=== PATIENT | male | born 1980 | race Caucasian/White ===

== ENCOUNTER 2016-08-16 01:43 | Emergency (ER) | payer SELFPAY ==
[2016-08-16] MEDS ORDERED: HYDROcodone/Acetaminophen 10/325 mg Tablet ONE (02:08)
[2016-08-16] MEDS ORDERED: Naproxen 500 MG TAB ONE (02:08)
--- NOTE | 2016-08-16 07:43 | RAD ---
RIGHT TIBIA AND FIBULA 4 VIEWS: Date: 08/16/16 HISTORY: Fell 2 days ago with injury to right lower extremity. FINDINGS: No evidence of fracture identified. IMPRESSION: No acute osseous abnormality. POS: [facility]
--- NOTE | 2016-08-16 07:43 | RAD ---
RIGHT ANKLE 3 VIEWS: Date: 08/16/16 HISTORY: Fell 2 days ago with injury to ankle. FINDINGS: Mild soft tissue swelling. No evidence of fracture. IMPRESSION: No acute osseous abnormality. POS: [facility]
--- NOTE | 2016-08-16 07:50 | RAD ---
RIGHT FOOT: Three views obtained. HISTORY: Fell 2 days with injury to foot. FINDINGS: Tarsals appear intact. Metatarsals and phalanges appear intact. IMPRESSION: No acute abnormality. POS: [facility]
== END 2016-08-16 02:52 | disposition home or self-care (01) ==
LOC: MADERS 01:43
DX: S93.401A Sprain of unspecified ligament of right ankle, initial encounter (principal); S90.31XA Contusion of right foot, initial encounter; F41.9 Anxiety disorder, unspecified; F17.210 Nicotine dependence, cigarettes, uncomplicated; W19.XXXA Unspecified fall, initial encounter

== ENCOUNTER 2016-09-20 01:32 | Emergency (ER) | payer SELFPAY ==
[2016-09-20] MEDS ORDERED: HYDROcodone/Acetaminophen 10/325 mg Tablet ONE (03:33)
[2016-09-20] MEDS ORDERED: Naproxen 500 MG TAB ONE (03:33)
[2016-09-20 03:48] LABS: #Basophils 0.1 thou/uL (0.0-0.2); #Eosinphils 0.5 thou/uL (0.0-0.7); #Lymphocytes 3.7 thou/uL (1.20-3.40); #Monocytes 0.9 thou/uL (0.11-0.59); #Neutrophils 4.9 thou/uL (1.40-6.50); %Basophils 1.2 % (0.0-1.0); %Eosinophils 5.1 % (0.0-10.0); %Lymphocytes 36.4 % (21.0-51.0); %Monocytes 9.3 % (0.0-10.0); %Neutrophils 48.1 % (42.0-75.0); Hemoglobin 16.8 g/dL (14.0-18.0); Mean Corpuscular HGB CONC 34.1 g/dL (32.0-36.0); Mean Corpuscular Volume 93.9 fl (80.0-94.0); Mean Platelet Volume 8.7 fL (7.4-10.4); Platelet Count 196 thou/uL (130-400); Red Blood Cell (RBC) Count 5.26 mill/uL (4.70-6.10); White Blood Cell (WBC) Count 10.1 thou/uL (4.8-10.8)
[2016-09-20 04:08] LABS: ALT (SGPT) 19 U/L (0-55); AST (SGOT) 19 U/L (5-34); Albumin 4.4 g/dL (3.5-5.0); Alkaline Phosphatase 96 U/L (40-150); Anion Gap 15 mmol/L (10-20); BUN (Urea Nitrogen) 17 mg/dL (8.9-20.6); Bilirubin, Total 0.4 mg/dL (0.2-1.2); Calc. Creatinine Clearance 0 mL/min (70-130); Calcium 9.1 mg/dL (7.8-10.44); Carbon Dioxide 24 mmol/L (22-29); Chloride 105 mmol/L (98-107); Estimated GFR-MDRD Greater than 90; Globulin 2.6 g/dL (2.4-3.5); Glucose 96 mg/dL (70-105); Potassium 4.1 mmol/L (3.5-5.1); Sodium 140 mmol/L (136-145)
== END 2016-09-20 05:02 | disposition home or self-care (01) ==
LOC: MADERS 01:32
DX: M79.661 Pain in right lower leg (principal); M79.671 Pain in right foot; F41.9 Anxiety disorder, unspecified; F17.210 Nicotine dependence, cigarettes, uncomplicated; Z79.899 Other long term (current) drug therapy; V89.2XXA Person injured in unspecified motor-vehicle accident, traffic, initial encounter
CPT/HCPCS: 36415; 80053; 85025; 85379; 99283

== ENCOUNTER 2016-10-08 13:38 | Emergency (ER) | payer SELFPAY ==
[2016-10-08] MEDS ORDERED: Ondansetron HCl/PF 4 MG/2 ML Vial ONE ×2 (13:46→14:18)
[2016-10-08] MEDS ORDERED: Ketorolac Tromethamine 30 MG/ML VIAL ONE (13:46)
[2016-10-08 14:16] LABS: #Basophils 0.1 thou/uL (0.0-0.2); #Eosinphils 0.2 thou/uL (0.0-0.7); #Neutrophils 9.8 thou/uL (1.40-6.50); %Basophils 0.8 % (0.0-1.0); %Eosinophils 1.2 % (0.0-10.0); %Lymphocytes 15.3 % (21.0-51.0); %Monocytes 7.6 % (0.0-10.0); Mean Corpuscular Hemoglobin 31.6 pg (27.0-31.0); Mean Corpuscular Volume 92.9 fl (80.0-94.0); Mean Platelet Volume 8.3 fL (7.4-10.4); Platelet Count 247 thou/uL (130-400); RBC Distribution Width 10.8 % (11.5-14.5); Red Blood Cell (RBC) Count 5.38 mill/uL (4.70-6.10)
[2016-10-08 14:25] LABS: Blood, Urine Large (Negative); Clarity Clear (Clear); Glucose, Urine (Dipstick) Negative (Negative); Leukocyte Negative (Negative); Nitrite Negative (Negative); Protein, Urine (Dipstick) Negative (Neg-Trace); Urobilinogen 0.2 mg/dL (0.2-1.0); pH, Urine 5.5 (5.0-9.0)
[2016-10-08 14:26] LABS: ALT (SGPT) 15 U/L (8-55); AST (SGOT) 17 U/L (5-34); Albumin 4.5 g/dL (3.5-5.0); Alkaline Phosphatase 95 U/L (40-150); Amylase 73 U/L (25-125); Anion Gap 15 mmol/L (10-20); BUN (Urea Nitrogen) 11 mg/dL (8.9-20.6); Bilirubin, Total 0.5 mg/dL (0.2-1.2); Calc. Creatinine Clearance 0 mL/min (70-130); Calcium 9.1 mg/dL (7.8-10.44); Carbon Dioxide 21 mmol/L (22-29); Chloride 106 mmol/L (98-107); Estimated GFR-MDRD 67; Globulin 2.5 g/dL (2.4-3.5); Glucose 159 mg/dL (70-105); Potassium 4.1 mmol/L (3.5-5.1); Sodium 138 mmol/L (136-145)
[2016-10-08 14:27] LABS: CRP (Inflammatory) Less than 0.50 mg/dL (= or < 0.5); Lipase 35 U/L (8-78)
--- NOTE | 2016-10-08 14:35 | RAD ---
ONE VIEW CHEST: History: Chest pain. Comparison: 03-15-16 FINDINGS: Portable upright chest. Normal cardiac silhouette. Pulmonary vessels and hilum are normal. No mass. No consolidation. No pneumothorax or osseous abnormality. IMPRESSION: No acute cardiopulmonary process. POS: [facility]
[2016-10-08 14:44] LABS: Icto Negative (Negative); Specific Gravity, Urine 1.028 (1.002-1.036)
[2016-10-08 14:45] LABS: Bacteria/HPF Rare-Few HPF (None Seen); Bilirubin Negative (Negative); RBC/HPF 21-50 HPF (0-3); WBC/HPF 0-3 HPF (0-3)
--- NOTE | 2016-10-08 15:48 | CT ---
EXAM: ABDOMEN CT WITHOUT CONTRAST PELVIC CT WITHOUT CONTRAST: HISTORY: Flank pain. COMPARISON: None. TECHNIQUE: Abdomen and pelvic CT is performed without IV or oral contrast. Coronal reformatted images are prov ided for interpretation. FINDINGS: ABDOMEN CT: Lung bases are clear. Heart size is normal. No pericardial effusion. Descending thoracic aorta an d abdominal aorta have a normal caliber. No periaortic fat stranding. Visualized solid organs are grossly unremarkable. Evaluation is limited by technique. No gastrohepatic, retrocrural, or periportal lymphadenopathy. No mesenteric mass, lymphadenopathy, free air, or free fluid. Limited evaluation of the alimentary canal due to the absence of oral contrast administration. Michelle terra mucosa, duodenum, and small bowel loops are unremarkable. No evidence of bowel obstruction. Nor mal-caliber appendix is identified. With regard to the left intrarenal collecting system, there is a punctate less than 1 mm nonobstruct ing calculus. No evidence of left-sided obstructive uropathy. With regard to the right collecting system, there is mild dilatation of the right intra- and extrarenal collecting system secondary to a 2 mm calculus in the distal right ureter, just proximal to the right ureterovesicular junction. Ca lcification is best demonstrated on coronal image #68, series 200. PELVIC CT: The urinary bladder is unremarkable. No pelvic mass, lymphadenopathy, free air, or free fluid. There are no osteoblastic or osteolytic lesions. IMPRESSION: 1. Mild right-sided obstructive uropathy secondary to 2 mm calculus in the distal right ureter, jus t proximal to the ureterovesicular junction. 2. Normal-caliber appendix. POS: [facility]
== END 2016-10-08 15:24 | disposition home or self-care (01) ==
LOC: MADERS 13:38
DX: N20.1 Calculus of ureter (principal); F41.9 Anxiety disorder, unspecified; F17.210 Nicotine dependence, cigarettes, uncomplicated; Z79.899 Other long term (current) drug therapy
CPT/HCPCS: 71010; 74176; 80053; 81001; 82150; 83690; 85025; 86140; 96374; 96375; J1885; J2270; J2405

== ENCOUNTER 2017-06-03 18:39 | Emergency (ER) | payer SELFPAY ==
[2017-06-03 20:30] LABS: Bilirubin Negative (Negative); Blood, Urine Negative (Negative); Clarity Clear (Clear); Glucose, Urine (Dipstick) Negative (Negative); Leukocyte Negative (Negative); Nitrite Negative (Negative); Protein, Urine (Dipstick) Negative (Neg-Trace); pH, Urine 5.5 (5.0-9.0)
[2017-06-03 20:36] LABS: Amphetamine Not Detected (NotDetected); Cocaine Metabolite Screen Not Detected (NotDetected); Methamphetamine Not Detected (NotDetected); Opiate Screen Not Detected (NotDetected); Phencyclidine (PCP) Not Detected (NotDetected); THC/Cannabinoid Screen Detected (NotDetected)
[2017-06-03 20:37] LABS: Barbiturates Screen Not Detected (NotDetected); Benzodiazepine Screen Detected (NotDetected); Medtox Control Line Valid? VALID (VALID); Methadone Detected (NotDetected); Oxycodone Screen Not Detected (NotDetected); Tricyclic Screen Not Detected (NotDetected)
--- NOTE | 2017-06-03 20:38 | RAD ---
TWO VIEWS RIGHT SHOULDER 06/03/17 HISTORY: Pain. COMPARISON: None. FINDINGS: Limited evaluation for dislocation as only two views are provided. Based on the images, no obvious di slocation. Glenohumeral joint space is preserved. No fracture. IMPRESSION: Unremarkable two views right shoulder. POS: [facility]
[2017-06-03 20:49] LABS: #Basophils 0.1 thou/uL (0.0-0.2); #Eosinphils 0.3 thou/uL (0.0-0.7); #Lymphocytes 2.5 thou/uL (1.20-3.40); #Monocytes 0.8 thou/uL (0.11-0.59); #Neutrophils 6.4 thou/uL (1.40-6.50); %Eosinophils 2.6 % (0.0-10.0); %Monocytes 7.8 % (0.0-10.0); %Neutrophils 63.6 % (42.0-75.0); Hemoglobin 16.3 g/dL (14.0-18.0); Mean Corpuscular Hemoglobin 31.6 pg (27.0-31.0); Mean Corpuscular Volume 92.9 fl (80.0-94.0); Mean Platelet Volume 8.7 fL (7.4-10.4); Platelet Count 240 thou/uL (130-400); RBC Distribution Width 10.6 % (11.5-14.5); Red Blood Cell (RBC) Count 5.16 mill/uL (4.70-6.10); White Blood Cell (WBC) Count 10.1 thou/uL (4.8-10.8)
[2017-06-03 20:54] LABS: ALT (SGPT) 10 U/L (8-55); AST (SGOT) 15 U/L (5-34); Albumin 4.1 g/dL (3.5-5.0); Alkaline Phosphatase 93 U/L (40-150); Anion Gap 15 mmol/L (10-20); BUN (Urea Nitrogen) 19 mg/dL (8.9-20.6); Bilirubin, Total 0.3 mg/dL (0.2-1.2); Calc. Creatinine Clearance 0 mL/min (70-130); Carbon Dioxide 24 mmol/L (22-29); Chloride 106 mmol/L (98-107); Estimated GFR-MDRD 85; Glucose 92 mg/dL (70-105); Protein, Total 7.1 g/dL (6.0-8.3); Sodium 141 mmol/L (136-145)
== END 2017-06-03 21:40 | disposition home or self-care (01) ==
LOC: MADERS 18:39
DX: F12.10 Cannabis abuse, uncomplicated (principal); F19.10 Other psychoactive substance abuse, uncomplicated; R42 Dizziness and giddiness; S43.421D Sprain of right rotator cuff capsule, subsequent encounter; F17.210 Nicotine dependence, cigarettes, uncomplicated
CPT/HCPCS: 36415; 80053; 80306; 81003; 85025